=== PATIENT | male | born 1980 ===

== ENCOUNTER 2017-12-04 23:07 | Emergency (ER) | payer BC ==
[2017-12-05] VITALS: BP 153/93; PULSE 98; RESP 18; TEMP 98.8; O2SAT 99
--- NOTE | 2017-12-05 01:13 | ED PDOC ---
HPI:Nausea, Vomiting, Diarrhea Time Seen by Provider: 12/05/17 00:17 Chief Complaint (Nursing): GI Problem Chief Complaint (Provider): GI Problem History Per: Patient History/Exam Limitations: no limitations Onset/Duration Of Symptoms: Days (x1) Current Symptoms Are (Timing): Still Present Additional Complaint(s): 37 year old male who presents to the emergency department with a complaint of bloody, dark and loose stools associated with nausea and 2 episodes of vomiting ongoing for 1 day. Denied any abdominal pain or decreased appetite. PMD: none provided Past Medical History Reviewed: Historical Data, Nursing Documentation, Vital Signs Vital Signs: Last Vital Signs Temp 98.8 F 12/04/17 23:50 Pulse 98 H 12/04/17 23:50 Resp 18 12/04/17 23:50 BP 153/93 H 12/04/17 23:50 Pulse Ox 99 12/04/17 23:50 - Medical History PMH: No Chronic Diseases - Surgical History Surgical History: No Surg Hx - Family History Family History: States: Unknown Family Hx - Home Medications Home Medications: Ambulatory Orders Medication Instructions Recorded Pantoprazole Sodium [Protonix] 40 mg PO DAILY #30 ect 12/05/17 - Allergies Allergies/Adverse Reactions: Allergies Allergy/AdvReac Type Severity Reaction Status Date / Time No Known Allergies Allergy Verified 12/04/17 23:53 Review of Systems ROS Statement: Except As Marked, All Systems Reviewed And Found Negative Gastrointestinal: Positive for: Nausea, Vomiting (x2), Diarrhea, Melena, Hematochezia. Negative for: Abdominal Pain, Other (decreased appetite) Physical Exam - Reviewed Nursing Documentation Reviewed: Yes Vital Signs Reviewed: Yes - Physical Exam Appears: Positive for: Well, Non-toxic, No Acute Distress Head Exam: Positive for: ATRAUMATIC, NORMAL INSPECTION, NORMOCEPHALIC Skin: Positive for: Normal Color Eye Exam: Positive for: Normal appearance ENT: Positive for: Normal ENT Inspection Neck: Positive for: Normal, Painless ROM. Negative for: Decreased ROM Cardiovascular/Chest: Positive for: Regular Rate, Rhythm, Chest Non Tender Respiratory: Positive for: Normal Breath Sounds. Negative for: Decreased Breath Sounds, Wheezing, Respiratory Distress Gastrointestinal/Abdominal: Positive for: Normal Exam, Soft. Negative for: Tenderness Rectal: Positive for: Blood Streaked Stool. Negative for: Normal Exam Extremity: Positive for: Normal ROM (upper/lower). Negative for: Pedal Edema ( bilateral), Calf Tenderness (bilateral) Neurologic/Psych: Positive for: Alert (x3), Oriented - Laboratory Results Result Diagrams: 12/05/17 01:19 12/05/17 01:19 - ECG O2 Sat by Pulse Oximetry: 99 (RA) Pulse Ox Interpretation: Normal Medical Decision Making Medical Decision Making: Initial Impression: Rectal bleeding Initial Plan: * CMP * CBC * Protonix inj 40mg IVP Time: 0100 --Patient reported feeling better. Time: 0345 --Upon provider reevaluation, patient is medically stable, reported resolution of symptoms with no further bloody bowel movements and requires no further treatment in the ED at this time. Patient will be discharged home. Counseling was provided and all questions were answered regarding diagnosis and need for follow up with PMD. There is agreement to discharge plan. Return if symptoms persist or worsen. Clinical Impression: Rectal bleeding Scribe Attestation: Documented by Danielle Arciniega, acting as a scribe for Kiran Vega MD. Provider Scribe Attestation: All medical record entries made by the Scribe were at my direction and personally dictated by me. I have reviewed the chart and agree that the record accurately reflects my personal performance of the history, physical exam, medical decision making, and the department course for this patient. I have also personally directed, reviewed, and agree with the discharge instructions and disposition. Disposition - Clinical Impression Clinical Impression: Rectal bleeding - Patient ED Disposition Is Patient to be Admitted: No Counseled Patient/Family Regarding: Studies Performed, Diagnosis, Need For Followup - Disposition Referrals: JenniferWishery Serena Clayton [Outside] Chai Pitts MD [Staff Provider] - Disposition: Routine/Home Disposition Time: 03:45 Condition: IMPROVED Prescriptions: Pantoprazole Sodium [Protonix] 40 mg PO DAILY #30 ect Instructions: Rectal Bleeding (ED) Forms: [employer] (Uzbek)
[2017-12-05 01:31] LABS: BASO # 0.1 K/uL (0.0-0.2); BASO % 0.4 % (0.0-2.0); EOS # 0.1 K/uL (0.0-0.7); EOS % 0.3 % (0.0-4.0); HEMOGLOBIN 11.1 g/dL (12.0-18.0); LYMPH # 4.1 K/uL (1.0-4.3); LYMPH % 20.3 % (20.0-40.0); MEAN CELL VOLUME 93.7 fl (80.0-94.0); MEAN CORPUSCULAR HEMOGLOBIN 30.9 pg (27.0-31.0); MEAN PLATELET VOLUME 8.4 fl (7.2-11.7); MONO # 1.5 K/uL (0.0-0.8); MONO % 7.4 % (0.0-10.0); NEUT # 14.5 K/uL (1.8-7.0); NEUT % 71.6 % (50.0-75.0); RBC 3.59 Mil/uL (4.40-5.90); RED CELL DISTRIBUTION WIDTH 12.8 % (11.5-14.5); WHITE BLOOD COUNT 20.3 K/uL (4.8-10.8)
[2017-12-05 01:42] LABS: ALB/GLOB RATIO 1.4 (1.0-2.1); ALBUMIN 3.8 g/dL (3.5-5.0); ALT/SGPT 40 U/L (21-72); AST/SGOT 21 U/L (17-59); BLOOD UREA NITROGEN 19 mg/dl (9-20); CALCIUM 8.8 mg/dL (8.4-10.2); GFR AFRICAN-AMERICAN > 60; GFR NON-AFRICAN AMERICAN > 60
== END 2017-12-05 04:06 | disposition home or self-care (01) ==
LOC: H.ER 23:07
DX: K62.5 Hemorrhage of anus and rectum (principal)
CPT/HCPCS: 80053; 85025; 96374; 99282; C9113; G0328

== ENCOUNTER 2017-12-08 16:41 | Inpatient (IN) | payer BC ==
[2017-12-08] MEDS ORDERED: Sodium Chloride 0.9% 1,000 ML IV STA (17:11)
[2017-12-08 18:04] LABS: VENOUS BLOOD GAS BASE EXCESS 6.9 mmol/L (0.0-2.0); VENOUS BLOOD GAS PCO2 52 mmHg (40-60); VENOUS BLOOD GAS PO2 21 mm/Hg (30-55); VENOUS BLOOD PH 7.41 (7.32-7.43)
--- NOTE | 2017-12-08 18:14 | ED PDOC ---
HPI: General Adult Time Seen by Provider: 12/08/17 17:10 Chief Complaint (Nursing): GI Problem Chief Complaint (Provider): GI Problem History Per: Patient History/Exam Limitations: no limitations Onset/Duration Of Symptoms: Days (x 5) Have you had recent travel within the past 21 days to any of the following countries: [place], [place], [place] or [place]?: No Current Symptoms Are (Timing): Still Present Additional Complaint(s): 37 year old male presents to the ED complaining of a persistent GI bleed, onset 5 days ago. He ws previously seen in ER for hematemesis. His hemoglobin levels were determined to be stable, he was discharged and told to follow up with GI doctor, Dr. Simpson. Today, he saw GI doctor who performed repeat blood work on the patient. Blood work showed precipitous drop in hemoglobin and he was sent to ER for evaluation. He states that intestinal symptoms have improved. Does note feeling fatigue. Admits to significant Motrin use over the last month. Denies vomit or blood per rectum. PMD: Dr. Tatiana TYSON Patient saw [facility] this morning Past Medical History Reviewed: Historical Data, Nursing Documentation, Vital Signs Vital Signs: Last Vital Signs Temp 97.8 F 12/10/17 09:30 Pulse 66 12/10/17 09:30 Resp 19 12/10/17 09:30 BP 130/73 12/10/17 09:30 Pulse Ox 100 12/10/17 09:30 - Medical History PMH: No Chronic Diseases - Surgical History Surgical History: No Surg Hx - Family History Family History: States: Unknown Family Hx - Social History Current smoker - smoking cessation education provided: No Alcohol: Social Drugs: Cannabis - Home Medications Home Medications: Ambulatory Orders Medication Instructions Recorded Pantoprazole Sodium [Protonix] 40 mg PO DAILY #30 ect 12/05/17 Ferrous Sulfate [Feosol] 325 mg PO BID #60 tab 12/10/17 Pantoprazole [Protonix EC Tab] 40 mg PO DAILY #30 ect 12/10/17 - Allergies Allergies/Adverse Reactions: Allergies Allergy/AdvReac Type Severity Reaction Status Date / Time No Known Allergies Allergy Verified 12/08/17 17:03 Review of Systems ROS Statement: Except As Marked, All Systems Reviewed And Found Negative Gastrointestinal: Positive for: Abdominal Pain, Melena, Hematemesis Neurological: Positive for: Dizziness Physical Exam - Reviewed Nursing Documentation Reviewed: Yes - Physical Exam Appears: Positive for: Non-toxic, No Acute Distress Head Exam: Positive for: ATRAUMATIC Skin: Positive for: Warm, Dry, Pallor Eye Exam: Positive for: EOMI, Normal appearance, PERRL Neck: Positive for: Normal, Painless ROM, Supple Cardiovascular/Chest: Positive for: Regular Rate, Rhythm. Negative for: Murmur Respiratory: Positive for: Normal Breath Sounds. Negative for: Respiratory Distress Gastrointestinal/Abdominal: Positive for: Normal Exam, Soft Back: Positive for: Normal Inspection. Negative for: L CVA Tenderness, R CVA Tenderness, Vertebral Tenderness Extremity: Positive for: Normal ROM. Negative for: Deformity Neurologic/Psych: Positive for: Alert, Oriented. Negative for: Motor/Sensory Deficits - Laboratory Results Result Diagrams: 12/10/17 06:10 12/10/17 06:10 - ECG O2 Sat by Pulse Oximetry: 98 (RA) Pulse Ox Interpretation: Normal Medical Decision Making Medical Decision Making: Time: 17:11 Initial Plan: --Blood screen and type --VBG shock --EKG --Alcohol serum --CMP --Lipase --Troponin I --PTT --Prothrombin time --Chest x-ray --Normal Saline IV 1,000 mls/hr --Protonix Inj 40 mg IVPB Q5H --Urinalysis Patient will recieve a workup for GI bleed and a protonix strip was initiated. Will be admitted for GI stabilization. Discussed PRBC transfusion, patient would like to avoid if he can, denies current SOB, chest pain or presyncope. Scribe Attestation: Documented by Rashida Pastor, acting as a scribe for Naman Jacobson III Provider Scribe Attestation: All medical record entries made by the Scribe were at my direction and personally dictated by me. I have reviewed the chart and agree that the record accurately reflects my personal performance of the history, physical exam, medical decision making, and the department course for this patient. I have also personally directed, reviewed, and agree with the discharge instructions and disposition Disposition - Clinical Impression Clinical Impression: Gastrointestinal hemorrhage, Anemia - Patient ED Disposition Is Patient to be Admitted: Yes Comment: Dr Mosquera GI fellow aware - Disposition Disposition Time: 19:20 Condition: STABLE - Pt Status Changed To: Hospital Disposition Of: Inpatient - Admit Certification Admit to Inpatient:: After my assessment, the patient will require hospitalization for at least two midnights. This is because of the severity of symptoms shown, intensity of services needed, and/or the medical risk in this patient being treated as an outpatient. - POA Present On Arrival: None
[2017-12-08] MEDS: Pantoprazole 40 MG in Sodium Chloride 0.9% 100 ML IVPB SCH ×2 (18:22→23:01)
[2017-12-08 18:24] LABS: INR 1.1 (0.9-1.2); PARTIAL THROMBOPLASTIN TIME 26.7 Seconds (25.6-37.1); PROTHROMBIN TIME 12.4 Seconds (9.8-13.1)
[2017-12-08 18:59] LABS: ALB/GLOB RATIO 1.5 (1.0-2.1); ALBUMIN 4.1 g/dL (3.5-5.0); ALT/SGPT 79 U/L (21-72); AST/SGOT 53 U/L (17-59); BLOOD UREA NITROGEN 11 mg/dl (9-20); CALCIUM 9.1 mg/dL (8.4-10.2); GFR AFRICAN-AMERICAN > 60; GFR NON-AFRICAN AMERICAN > 60; LIPASE 82 U/L (23-300)
[2017-12-08 20:02] LABS: BASO # 0.1 K/uL (0.0-0.2); BASO % 0.6 % (0.0-2.0); EOS # 0.1 K/uL (0.0-0.7); EOS % 0.6 % (0.0-4.0); HEMOGLOBIN 6.8 g/dL (12.0-18.0); LYMPH # 3.3 K/uL (1.0-4.3); LYMPH % 27.8 % (20.0-40.0); MEAN CELL VOLUME 96.5 fl (80.0-94.0); MEAN CORPUSCULAR HEMOGLOBIN 31.8 pg (27.0-31.0); MEAN CORPUSCULAR HGB CONC 32.9 g/dL (33.0-37.0); MEAN PLATELET VOLUME 7.9 fl (7.2-11.7); MONO # 0.9 K/uL (0.0-0.8); MONO % 7.8 % (0.0-10.0); NEUT # 7.6 K/uL (1.8-7.0); NEUT % 63.2 % (50.0-75.0); NRBC % 0.2 % (0.0-0.0); RBC 2.13 Mil/uL (4.40-5.90); RED CELL DISTRIBUTION WIDTH 13.5 % (11.5-14.5)
[2017-12-08 20:11] LABS: URINE BACTERIA OCC (<OCC); URINE BILIRUBIN NEGATIVE (NEGATIVE); URINE BLOOD NEGATIVE (NEGATIVE); URINE CLARITY SLIGHTY-CLOUDY (Clear); URINE COLOR YELLOW (YELLOW); URINE GLUCOSE (UA) NEG (Normal); URINE LEUKOCYTE ESTERASE NEG Leu/uL (Negative); URINE NITRATE NEGATIVE (NEGATIVE); URINE PROTEIN NEGATIVE (NEGATIVE); URINE UROBILINOGEN 0.2-1.0 mg/dL (0.2-1.0)
[2017-12-08 20:18] LABS: SQUAMOUS EPITHIAL 1 /hpf (0-5)
[2017-12-08] MEDS ORDERED: Iohexol 240 (50 ml) PO ONE (20:50)
--- NOTE | 2017-12-08 21:32 | CP.PCM.HP ---
History of Present Illness - History of Present Illness History of Present Illness: PMD: [facility] Hx taken from patient Full code 37 y/o M with no significant PMHx presented to ED with c/o weakness and referred from GI clinic for low Hgb. Patient was evaluated at ED 3 days ago with suspected melena and hematemesis, complains of weakness and palpitations, Hgb =11s at the time and FOBT was positive. 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 TOday patient went to [facility] and repeat labs were ordered, he then was able to be evaluated by Dr Simpson at GI clinic and Hgb was found to be 7s after what he was transferred to ED. Patient states that 4 days ago he started feeling weak and had multiple episode of light brown vomiting and 1 episode of dark stools after. He admitted drinking the night before, but does not recall how many drink he had. 3 days ago he then developed another episode of very dark stools and persistent vomiting when he decided to come to ED. After he was discharge home, the following day(2 days ago) he had a big vomiting with red blood and another episode of black stools. Since then he report no more vomiting, nausea or black stools. Report 1 BM today normal. Weakness "improved" as per patient. Denies recent episodes in the past, denies recent trauma. Admits taking NSAIDs for 1 week before symptoms started due to cold like symptoms(might have taken multiple tablet of Ibuprofen as per patient as well as some Nyquil). Admits marihuana and tobacco often. Denies palpitations, CP, SOB, dysuria, dizziness, headache, abd pain or heartburn. ED course: VS: HR 96, BP 174/83, PO 98, Temp 99 CBC, CMP, VBG, CXR, EKG, UA, Coags, Troponins, Lipase: Hgb 6.8, WBC 12, Coags , Liver enzymes and BUN/Creat unremarkable. UA + for Bacteria IV NS 1 L Protonix 80 mg IVP stat Protonix drip at 8 mg/hr Admitted to Telemetry Present on Admission - Present on Admission Any Indicators Present on Admission: No Review of Systems - Review of Systems All systems: reviewed and no additional remarkable complaints except - Constitutional Constitutional: Weakness (Resolved) - Gastrointestinal Gastrointestinal: Hematemesis, Melena, Nausea, Vomiting (resolved) Past Patient History - Past Medical History & Family History Past Medical History?: No - Past Social History Smoking Status: Light Smoker < 10 Cigarettes Daily Alcohol: Social Drugs: Cannabis - CARDIAC Hx Cardiac Disorders: No - PULMONARY Hx Respiratory Disorders: No - NEUROLOGICAL Hx Neurological Disorder: No - HEENT Hx HEENT Problems: No - RENAL Hx Chronic Kidney Disease: No - ENDOCRINE/METABOLIC Hx Endocrine Disorders: No - HEMATOLOGICAL/ONCOLOGICAL Hx Blood Disorders: No - MUSCULOSKELETAL/RHEUMATOLOGICAL Hx Musculoskeletal Disorders: No - GASTROINTESTINAL Hx Gastrointestinal Disorders: No - GENITOURINARY/GYNECOLOGICAL Hx Genitourinary Disorders: No - PSYCHIATRIC Hx Substance Use: Yes - SURGICAL HISTORY Hx Surgeries: No - ANESTHESIA Hx Anesthesia: No Meds Allergies/Adverse Reactions: Allergies Allergy/AdvReac Type Severity Reaction Status Date / Time No Known Allergies Allergy Verified 12/08/17 17:03 Physical Exam - Constitutional Appears: Non-toxic, No Acute Distress - Head Exam Head Exam: ATRAUMATIC, NORMAL INSPECTION - Eye Exam Eye Exam: EOMI, PERRL - ENT Exam ENT Exam: Mucous Membranes Moist - Respiratory Exam Respiratory Exam: Clear to Auscultation Bilateral, NORMAL BREATHING PATTERN - Cardiovascular Exam Cardiovascular Exam: REGULAR RHYTHM, +S1, +S2 - GI/Abdominal Exam GI & Abdominal Exam: Normal Bowel Sounds, Soft. absent: Guarding, Rebound - Rectal Exam Rectal Exam: Deferred Additional comments: Patient had rectal exam done by GI fellow earlier today. - Extremities Exam Extremities exam: Positive for: normal capillary refill. Negative for: pedal edema, tenderness - Back Exam Back exam: absent: CVA tenderness (L), CVA tenderness (R) - Neurological Exam Neurological exam: Alert, CN II-XII Intact, Normal Gait, Oriented x3 - Psychiatric Exam Psychiatric exam: Normal Affect, Normal Mood - Skin Skin Exam: Pallor, Warm Results - Vital Signs Recent Vital Signs: Last Vital Signs Temp 99.2 F 12/08/17 21:21 Pulse 89 12/08/17 21:21 Resp 16 12/08/17 21:21 BP 137/68 12/08/17 21:21 Pulse Ox 100 12/08/17 21:21 - Labs Result Diagrams: 12/08/17 19:30 12/08/17 17:47 Labs: Laboratory Results - last 24 hr 12/08/17 12/08/17 12/08/17 17:47 17:47 17:47 WBC RBC Hgb Hct MCV MCH MCHC RDW Plt Count MPV Neut % (Auto) Lymph % (Auto) [place] % (Auto) Eos % (Auto) Baso % (Auto) Neut # Lymph # [place] # Eos # Baso # PT 12.4 INR 1.1 APTT 26.7 pO2 VBG pH VBG pCO2 VBG HCO3 VBG Total CO2 VBG O2 Sat (Calc) VBG Base Excess VBG Potassium Glucose Lactate FiO2 Sodium 139 Potassium 3.5 L Chloride 98 Carbon Dioxide 30 Anion Gap 15 BUN 11 Creatinine 0.9 Est GFR ( Amer) > 60 Est GFR (Non-Af Amer) > 60 Random Glucose 100 Calcium 9.1 Total Bilirubin 0.4 AST 53 ALT 79 H Alkaline Phosphatase 41 Troponin I 0.0220 Total Protein 6.9 Albumin 4.1 Globulin 2.7 Albumin/Globulin Ratio 1.5 Lipase 82 Venous Blood Potassium Urine Color Urine Clarity Urine pH Ur Specific [place] Urine Protein Urine Glucose (UA) Urine Ketones Urine Blood Urine Nitrate Urine Bilirubin Urine Urobilinogen Ur Leukocyte Esterase Urine RBC (Auto) Urine Microscopic WBC Ur Squamous Epith Cells Urine Bacteria Alcohol, Quantitative < 10 Blood Type A POSITIVE Antibody Screen Negative BBK History Checked No verified bt 12/08/17 12/08/17 12/08/17 18:02 19:30 19:30 WBC 12.0 H RBC 2.13 L Hgb 6.8 L Hct 20.6 L MCV 96.5 H MCH 31.8 H MCHC 32.9 L RDW 13.5 Plt Count 339 MPV 7.9 Neut % (Auto) 63.2 Lymph % (Auto) 27.8 [place] % (Auto) 7.8 Eos % (Auto) 0.6 Baso % (Auto) 0.6 Neut # 7.6 H Lymph # 3.3 [place] # 0.9 H Eos # 0.1 Baso # 0.1 PT INR APTT pO2 21 L VBG pH 7.41 VBG pCO2 52 VBG HCO3 28.6 VBG Total CO2 34.6 H VBG O2 Sat (Calc) 38.3 L VBG Base Excess 6.9 H VBG Potassium 3.3 L Glucose 102 Lactate 1.1 FiO2 21.0 Sodium 136.0 Potassium Chloride 102.0 Carbon Dioxide Anion Gap BUN Creatinine Est GFR ( Amer) Est GFR (Non-Af Amer) Random Glucose Calcium Total Bilirubin AST ALT Alkaline Phosphatase Troponin I Total Protein Albumin Globulin Albumin/Globulin Ratio Lipase Venous Blood Potassium 3.3 L Urine Color Yellow Urine Clarity Slighty-cloudy Urine pH 6.0 Ur Specific [place] 1.020 Urine Protein Negative Urine Glucose (UA) Neg Urine Ketones Trace Urine Blood Negative Urine Nitrate Negative Urine Bilirubin Negative Urine Urobilinogen 0.2-1.0 Ur Leukocyte Esterase Neg Urine RBC (Auto) 2 Urine Microscopic WBC 1 Ur Squamous Epith Cells 1 Urine Bacteria Occ H Alcohol, Quantitative Blood Type Antibody Screen BBK History Checked Assessment & Plan - Assessment and Plan (Free Text) Assessment: 37 y/o M with no PMHx admitted for acute anemia and suspected GI bleeding Acute anemia -Likely due to acute blood loss -Hgb 6.8 -Asymptomatic -No actively bleeding at the time of admission -VS stable, coags and platelets WNL -2 units of PRBC ordered -F/U CBC AM -Admit to telemetry GI bleeding -Suspected. Likely Upper -Acute -R/O Chana Gupta tears vs Gastritis VS Ulcer -FOBT + 4 days ago -GI consulted(Dr Simpson) -Protonix drip -Oxygen NC PRN -NPO after midnight -For poss EGD tomorrow AM -CT abd and pelvis with PO and IV contrast as per GI recs -Zofran PRN for nausea/vomiting -Case discussed with GI fellow(Dr Mosquera) Substance abuse -Admits marijuana and ETOH -ETOH level at ED <10 -HIV ordered -UTox ordered Abnormal UA -bacteria. Rest unremarkable -Asymptomatic -Ucx ordered Prophylactic measures -SCDs
[2017-12-08] MEDS ORDERED: Iohexol 240 (50 ml) ONE (21:33)
[2017-12-08] MEDS ORDERED: Iohexol 300 100 ML IJ ONE (22:54)
[2017-12-08] MEDS ORDERED: Sodium Chloride 0.9% 50 ML IV ONE (22:54)
[2017-12-09] MEDS: Pantoprazole 40 MG in Sodium Chloride 0.9% 100 ML IVPB SCH ×4 (05:12→19:50)
[2017-12-09] MEDS ORDERED: Pneumococcal 23-Valent Vaccine IM ONE (06:00)
[2017-12-09] MEDS ORDERED: Influenza Vaccine 18yr & older 0.5 ML/45 MCG SYR IM ONE (06:00)
--- NOTE | 2017-12-09 06:51 | CP.PCM.CON ---
<Marah Mosquera - Last Filed: 12/09/17 07:26> History of Present Illness - History of Present Illness History of Present Illness: Initial GI Consult Note Jc Griffin is a 37M w/ no sig medical hx who presented to Dr. Simpson office with complaints of melena and hematemesis. Pt states that 4 days ago he started to have profuse nausea vomiting and diarrhea which eventually progressed to melena and blood tinged emesis. He states that the day prior to these events he went to a [place] and consumes significant amount of alcohol beverages and used cocaine. He notes that his symptom brought him to the ER for further evaluation. In ER, his hgn was 11 and pt was noted to be stable so he was discharged home on PPI. He had a repeat hgb conducted as an oupt on 12/08/17 which was noted to be 7.2. His rectal exam in the Dr. Simpson's office revealed black stool but formed. He denies any lightheaded or dizziness, though he was tachycardic and pale. Upon arrival to the ER, he was found to have a hgb of 6.8. He recieved 2 units of PRBC and started on PPI. He also reports taking a significant amount of NSAIDs including ibuprofen and naproxen the week priot due to flu like symptoms. Denies any abd pain, chest pain, or SOB PMHx: none PSHx: none Social hx: admits to drinking on the weekends 2-4 beers daily, Denies previous use of cocaine prior to this event, denies any smoking Family hx: denies a hx of colon cancer Endo hx: none ROS: 12 point ROS conducted neg other than above Past Patient History - Past Medical History & Family History Past Medical History?: No - Past Social History Smoking Status: Light Smoker < 10 Cigarettes Daily Alcohol: Social Drugs: Cannabis - CARDIAC Hx Cardiac Disorders: No - PULMONARY Hx Respiratory Disorders: No - NEUROLOGICAL Hx Neurological Disorder: No - HEENT Hx HEENT Problems: No - RENAL Hx Chronic Kidney Disease: No - ENDOCRINE/METABOLIC Hx Endocrine Disorders: No - HEMATOLOGICAL/ONCOLOGICAL Hx Blood Disorders: No - INTEGUMENTARY Hx Dermatological Problems: No - MUSCULOSKELETAL/RHEUMATOLOGICAL Hx Musculoskeletal Disorders: No - GASTROINTESTINAL Hx Gastrointestinal Disorders: No - GENITOURINARY/GYNECOLOGICAL Hx Genitourinary Disorders: No - PSYCHIATRIC Hx Substance Use: Yes - SURGICAL HISTORY Hx Surgeries: No - ANESTHESIA Hx Anesthesia: No Meds Allergies/Adverse Reactions: Allergies Allergy/AdvReac Type Severity Reaction Status Date / Time No Known Allergies Allergy Verified 12/08/17 17:03 - Medications Medications: Current Medications Pantoprazole Sodium 40 mg/ (Sodium Chloride) 100 mls @ 20 mls/hr IVPB Q5H JOLLY PRN Reason: 8 MG/HR Last Admin: 12/09/17 05:12 Dose: 20 mls/hr Sodium Chloride (Sodium Chloride 0.9%) 1,000 mls @ 125 mls/hr IV .Q8H JOLLY Stop: 12/10/17 06:39 Ondansetron HCl (Zofran Inj) 4 mg IVP Q6 PRN PRN Reason: Nausea/Vomiting Physical Exam - Constitutional Appears: Well, No Acute Distress - Head Exam Head Exam: ATRAUMATIC, NORMOCEPHALIC - Eye Exam Eye Exam: EOMI, Normal appearance - ENT Exam ENT Exam: Mucous Membranes Moist - Respiratory Exam Respiratory Exam: Clear to Auscultation Bilateral, NORMAL BREATHING PATTERN. absent: Rales, Rhonchi, Wheezes, Respiratory Distress - Cardiovascular Exam Cardiovascular Exam: REGULAR RHYTHM, +S1, +S2 - GI/Abdominal Exam GI & Abdominal Exam: Normal Bowel Sounds, Soft. absent: Distended, Guarding, Hernia, Rigid, Tenderness - Rectal Exam Rectal Exam: Black Stool. absent: Bloody Stool, Hemorrhoids, Fecal Impaction - Extremities Exam Extremities exam: Negative for: joint swelling, pedal edema - Neurological Exam Neurological exam: Alert, Oriented x3 - Psychiatric Exam Psychiatric exam: Normal Affect, Normal Mood - Skin Skin Exam: Dry, Intact, Normal Color, Warm Results - Vital Signs Recent Vital Signs: Last Vital Signs Temp 98.3 F 12/09/17 05:19 Pulse 78 12/09/17 05:19 Resp 18 12/09/17 05:19 BP 124/74 12/09/17 05:19 Pulse Ox 98 12/09/17 05:19 - Labs Result Diagrams: 12/08/17 19:30 12/08/17 17:47 Labs: Laboratory Results - last 24 hr 12/08/17 12/08/17 12/08/17 17:47 17:47 17:47 WBC RBC Hgb Hct MCV MCH MCHC RDW Plt Count MPV Neut % (Auto) Lymph % (Auto) Starke % (Auto) Eos % (Auto) Baso % (Auto) Neut # Lymph # Starke # Eos # Baso # PT 12.4 INR 1.1 APTT 26.7 pO2 VBG pH VBG pCO2 VBG HCO3 VBG Total CO2 VBG O2 Sat (Calc) VBG Base Excess VBG Potassium Glucose Lactate FiO2 Sodium 139 Potassium 3.5 L Chloride 98 Carbon Dioxide 30 Anion Gap 15 BUN 11 Creatinine 0.9 Est GFR ( Amer) > 60 Est GFR (Non-Af Amer) > 60 Random Glucose 100 Calcium 9.1 Total Bilirubin 0.4 AST 53 ALT 79 H Alkaline Phosphatase 41 Troponin I 0.0220 Total Protein 6.9 Albumin 4.1 Globulin 2.7 Albumin/Globulin Ratio 1.5 Lipase 82 Venous Blood Potassium Urine Color Urine Clarity Urine pH Ur Specific Munday Urine Protein Urine Glucose (UA) Urine Ketones Urine Blood Urine Nitrate Urine Bilirubin Urine Urobilinogen Ur Leukocyte Esterase Urine RBC (Auto) Urine Microscopic WBC Ur Squamous Epith Cells Urine Bacteria Alcohol, Quantitative < 10 Blood Type A POSITIVE Blood Type Confirm Antibody Screen Negative Crossmatch See Detail BBK History Checked No verified bt 12/08/17 12/08/17 12/08/17 18:02 18:44 19:30 WBC RBC Hgb Hct MCV MCH MCHC RDW Plt Count MPV Neut % (Auto) Lymph % (Auto) Starke % (Auto) Eos % (Auto) Baso % (Auto) Neut # Lymph # Starke # Eos # Baso # PT INR APTT pO2 21 L VBG pH 7.41 VBG pCO2 52 VBG HCO3 28.6 VBG Total CO2 34.6 H VBG O2 Sat (Calc) 38.3 L VBG Base Excess 6.9 H VBG Potassium 3.3 L Glucose 102 Lactate 1.1 FiO2 21.0 Sodium 136.0 Potassium Chloride 102.0 Carbon Dioxide Anion Gap BUN Creatinine Est GFR ( Amer) Est GFR (Non-Af Amer) Random Glucose Calcium Total Bilirubin AST ALT Alkaline Phosphatase Troponin I Total Protein Albumin Globulin Albumin/Globulin Ratio Lipase Venous Blood Potassium 3.3 L Urine Color Yellow Urine Clarity Slighty-cloudy Urine pH 6.0 Ur Specific Munday 1.020 Urine Protein Negative Urine Glucose (UA) Neg Urine Ketones Trace Urine Blood Negative Urine Nitrate Negative Urine Bilirubin Negative Urine Urobilinogen 0.2-1.0 Ur Leukocyte Esterase Neg Urine RBC (Auto) 2 Urine Microscopic WBC 1 Ur Squamous Epith Cells 1 Urine Bacteria Occ H Alcohol, Quantitative Blood Type Blood Type Confirm A POSITIVE Antibody Screen Crossmatch BBK History Checked 12/08/17 19:30 WBC 12.0 H RBC 2.13 L Hgb 6.8 L Hct 20.6 L MCV 96.5 H MCH 31.8 H MCHC 32.9 L RDW 13.5 Plt Count 339 MPV 7.9 Neut % (Auto) 63.2 Lymph % (Auto) 27.8 Starke % (Auto) 7.8 Eos % (Auto) 0.6 Baso % (Auto) 0.6 Neut # 7.6 H Lymph # 3.3 Starke # 0.9 H Eos # 0.1 Baso # 0.1 PT INR APTT pO2 VBG pH VBG pCO2 VBG HCO3 VBG Total CO2 VBG O2 Sat (Calc) VBG Base Excess VBG Potassium Glucose Lactate FiO2 Sodium Potassium Chloride Carbon Dioxide Anion Gap BUN Creatinine Est GFR ( Amer) Est GFR (Non-Af Amer) Random Glucose Calcium Total Bilirubin AST ALT Alkaline Phosphatase Troponin I Total Protein Albumin Globulin Albumin/Globulin Ratio Lipase Venous Blood Potassium Urine Color Urine Clarity Urine pH Ur Specific Munday Urine Protein Urine Glucose (UA) Urine Ketones Urine Blood Urine Nitrate Urine Bilirubin Urine Urobilinogen Ur Leukocyte Esterase Urine RBC (Auto) Urine Microscopic WBC Ur Squamous Epith Cells Urine Bacteria Alcohol, Quantitative Blood Type Blood Type Confirm Antibody Screen Crossmatch BBK History Checked Assessment & Plan - Assessment and Plan (Free Text) Assessment: Jc Cruz is a 37M w/ no sig hx who presents with anemia and melena Melena Normocytic anemia Plan: -NPO -EGD in the AM -keep hgb >7 -continue PPI drip for now, s/p 80mg IV bolus -will get a colonoscopy on -keep on clears after EGD -start golytly at noon -NPO after midnight -consents in chart -maintain 2 large IV bore lines will D/w Dr. Alegria <Wero Alegria - Last Filed: 12/09/17 07:31> Meds - Medications Medications: Current Medications Pantoprazole Sodium 40 mg/ (Sodium Chloride) 100 mls @ 20 mls/hr IVPB Q5H JOLLY PRN Reason: 8 MG/HR Last Admin: 12/09/17 05:12 Dose: 20 mls/hr Sodium Chloride (Sodium Chloride 0.9%) 1,000 mls @ 125 mls/hr IV .Q8H JOLLY Stop: 12/10/17 06:39 Ondansetron HCl (Zofran Inj) 4 mg IVP Q6 PRN PRN Reason: Nausea/Vomiting Results - Vital Signs Recent Vital Signs: Last Vital Signs Temp 98.3 F 12/09/17 06:57 Pulse 85 12/09/17 06:57 Resp 18 12/09/17 06:57 BP 127/73 12/09/17 06:57 Pulse Ox 98 12/09/17 05:19 - Labs Result Diagrams: 12/08/17 19:30 12/08/17 17:47 Labs: Laboratory Results - last 24 hr 12/08/17 12/08/17 12/08/17 17:47 17:47 17:47 WBC RBC Hgb Hct MCV MCH MCHC RDW Plt Count MPV Neut % (Auto) Lymph % (Auto) Starke % (Auto) Eos % (Auto) Baso % (Auto) Neut # Lymph # Starke # Eos # Baso # PT 12.4 INR 1.1 APTT 26.7 pO2 VBG pH VBG pCO2 VBG HCO3 VBG Total CO2 VBG O2 Sat (Calc) VBG Base Excess VBG Potassium Glucose Lactate FiO2 Sodium 139 Potassium 3.5 L Chloride 98 Carbon Dioxide 30 Anion Gap 15 BUN 11 Creatinine 0.9 Est GFR ( Amer) > 60 Est GFR (Non-Af Amer) > 60 Random Glucose 100 Calcium 9.1 Total Bilirubin 0.4 AST 53 ALT 79 H Alkaline Phosphatase 41 Troponin I 0.0220 Total Protein 6.9 Albumin 4.1 Globulin 2.7 Albumin/Globulin Ratio 1.5 Lipase 82 Venous Blood Potassium Urine Color Urine Clarity Urine pH Ur Specific [place] Urine Protein Urine Glucose (UA) Urine Ketones Urine Blood Urine Nitrate Urine Bilirubin Urine Urobilinogen Ur Leukocyte Esterase Urine RBC (Auto) Urine Microscopic WBC Ur Squamous Epith Cells Urine Bacteria Alcohol, Quantitative < 10 Blood Type A POSITIVE Blood Type Confirm Antibody Screen Negative Crossmatch See Detail BBK History Checked No verified bt 12/08/17 12/08/17 12/08/17 18:02 18:44 19:30 WBC RBC Hgb Hct MCV MCH MCHC RDW Plt Count MPV Neut % (Auto) Lymph % (Auto) Starke % (Auto) Eos % (Auto) Baso % (Auto) Neut # Lymph # Starke # Eos # Baso # PT INR APTT pO2 21 L VBG pH 7.41 VBG pCO2 52 VBG HCO3 28.6 VBG Total CO2 34.6 H VBG O2 Sat (Calc) 38.3 L VBG Base Excess 6.9 H VBG Potassium 3.3 L Glucose 102 Lactate 1.1 FiO2 21.0 Sodium 136.0 Potassium Chloride 102.0 Carbon Dioxide Anion Gap BUN Creatinine Est GFR ( Amer) Est GFR (Non-Af Amer) Random Glucose Calcium Total Bilirubin AST ALT Alkaline Phosphatase Troponin I Total Protein Albumin Globulin Albumin/Globulin Ratio Lipase Venous Blood Potassium 3.3 L Urine Color Yellow Urine Clarity Slighty-cloudy Urine pH 6.0 Ur Specific [place]day 1.020 Urine Protein Negative Urine Glucose (UA) Neg Urine Ketones Trace Urine Blood Negative Urine Nitrate Negative Urine Bilirubin Negative Urine Urobilinogen 0.2-1.0 Ur Leukocyte Esterase Neg Urine RBC (Auto) 2 Urine Microscopic WBC 1 Ur Squamous Epith Cells 1 Urine Bacteria Occ H Alcohol, Quantitative Blood Type Blood Type Confirm A POSITIVE Antibody Screen Crossmatch BBK History Checked 12/08/17 19:30 WBC 12.0 H RBC 2.13 L Hgb 6.8 L Hct 20.6 L MCV 96.5 H MCH 31.8 H MCHC 32.9 L RDW 13.5 Plt Count 339 MPV 7.9 Neut % (Auto) 63.2 Lymph % (Auto) 27.8 Starke % (Auto) 7.8 Eos % (Auto) 0.6 Baso % (Auto) 0.6 Neut # 7.6 H Lymph # 3.3 Starke # 0.9 H Eos # 0.1 Baso # 0.1 PT INR APTT pO2 VBG pH VBG pCO2 VBG HCO3 VBG Total CO2 VBG O2 Sat (Calc) VBG Base Excess VBG Potassium Glucose Lactate FiO2 Sodium Potassium Chloride Carbon Dioxide Anion Gap BUN Creatinine Est GFR ( Amer) Est GFR (Non-Af Amer) Random Glucose Calcium Total Bilirubin AST ALT Alkaline Phosphatase Troponin I Total Protein Albumin Globulin Albumin/Globulin Ratio Lipase Venous Blood Potassium Urine Color Urine Clarity Urine pH Ur Specific [place] Urine Protein Urine Glucose (UA) Urine Ketones Urine Blood Urine Nitrate Urine Bilirubin Urine Urobilinogen Ur Leukocyte Esterase Urine RBC (Auto) Urine Microscopic WBC Ur Squamous Epith Cells Urine Bacteria Alcohol, Quantitative Blood Type Blood Type Confirm Antibody Screen Crossmatch BBK History Checked Attending/Attestation - Attestation I have personally seen and examined this patient.: Yes I have fully participated in the care of the patient.: Yes I have reviewed all pertinent clinical information: Yes Notes (Text): 12/09/17 07:29 37 year old male who presents with melena and acute blood loss anemia. 1. Melena 2. Acute blood loss anemia Plan: -CT reviewed, await final read, by unremarkable by my interpretation -abdominal pain is resloved this morning, no vomiting -NPO for urgent EGD this morning -recommend IV PPI -depending on results of EGD, may need colonoscopy tomorrow if no etiology is identified for bleeding/anemia -s/p transfusion overnight
--- NOTE | 2017-12-09 06:57 | CP.PCM.PN ---
Subjective - Date & Time of Evaluation Date of Evaluation: 12/09/17 Time of Evaluation: 07:10 - Subjective Subjective: Patient seen and examined bedside before going to endoscopy. Patient asymptomatic, denies dizziness, chest pain, SOB, n,v,abd pain, hematemesis or melena after admission. Receiving 2 unit pRBC now. Objective - Vital Signs/Intake and Output Vital Signs (last 24 hours): Temp Pulse Resp BP Pulse Ox 98.3 F 78 18 124/74 98 12/09/17 05:19 12/09/17 05:19 12/09/17 05:19 12/09/17 05:19 12/09/17 05:19 - Medications Medications: Current Medications Pantoprazole Sodium 40 mg/ (Sodium Chloride) 100 mls @ 20 mls/hr IVPB Q5H JOLLY PRN Reason: 8 MG/HR Last Admin: 12/09/17 05:12 Dose: 20 mls/hr Sodium Chloride (Sodium Chloride 0.9%) 1,000 mls @ 125 mls/hr IV .Q8H JOLLY Stop: 12/10/17 06:39 Ondansetron HCl (Zofran Inj) 4 mg IVP Q6 PRN PRN Reason: Nausea/Vomiting - Labs Labs: 12/08/17 19:30 12/08/17 17:47 PT 12.4 Seconds (9.8-13.1) 12/08/17 17:47 INR 1.1 (0.9-1.2) 12/08/17 17:47 APTT 26.7 Seconds (25.6-37.1) 12/08/17 17:47 - Constitutional Appears: No Acute Distress - Head Exam Head Exam: ATRAUMATIC, NORMOCEPHALIC - Eye Exam Additional comments: conjunctival pallor - ENT Exam ENT Exam: Mucous Membranes Moist - Neck Exam Neck Exam: Normal Inspection - Respiratory Exam Respiratory Exam: Clear to Ausculation Bilateral. absent: Rales, Rhonchi, Wheezes - Cardiovascular Exam Cardiovascular Exam: REGULAR RHYTHM, +S1, +S2 - GI/Abdominal Exam GI & Abdominal Exam: Soft, Normal Bowel Sounds. absent: Tenderness - Extremities Exam Extremities Exam: Normal Inspection. absent: Pedal Edema - Neurological Exam Neurological Exam: Alert, Awake, Oriented x3 - Skin Skin Exam: Pallor Assessment and Plan - Assessment and Plan (Free Text) Plan: 37 y/o M with no PMHx admitted for acute anemia secondary for suspected GI bleeding 1) Upper GI bleeding -melena and hematemesis -may be secondary to gastritis( ETOH,drugs vs gastric or duodenal ulcer) -CT abd/pelvis Ed: No acute obstructive or inflammatory process in the abdomen or pelvis. -Protonix drip, Zofran PRN -IV fluids NS 125 ml/h -s/p transfusion rPBC 2 units -GI consult appreciated: c/w Protonix 40 mg IV BID, clear diet, colonoscopy tomorrow -12/09/17 EGD: Gastritis, superficial duodenal bulb ulcer 1 cm -f/u gastric biopsy for H pilory -FOBT + -f/u CBC, CMP 2) Acute anemia -secondary to blood loss( duodenal ulcer) -Vs stable -Hgb 6.8. MCV : 96.5 ( macrocytic) -s/p 2 u pRBC -IV Fluids NS 125 ml/h -pending cbc report today after transfusion -f/u cbc, cmp 3) Substance Abuse -Admits marijuana use daily bid for many years and ETOH social -Cocaine use, for first time 4 days ago -ETOH level at ED <10 -f/u UTox -HIV nonreactive 4) Abnormal UA -bacteria occ. Rest unremarkable -Asymptomatic -f/u urine cx 5) DVT Prophylaxis -SCD
[2017-12-09] MEDS ORDERED: EPINEPHrine 1 mg/ml (1:1000) Inj ONE (07:34)
[2017-12-09] MEDS ORDERED: Sodium Chloride 0.9% 500 ML IV ONE ×2 (08:06)
[2017-12-09] MEDS ORDERED: Midazolam 2 MG/2 ML VIAL ONE (08:21)
[2017-12-09] MEDS ORDERED: Propofol 10 mg/ml Inj (20 ML) ONE (08:21)
[2017-12-09] MEDS: Sodium Chloride 0.9% 1,000 ML IV SCH ×3 (09:26→21:51)
--- NOTE | 2017-12-09 10:49 | RAD ---
HISTORY: SOB COMPARISON: No prior. FINDINGS: LUNGS: No active pulmonary disease. PLEURA: No significant pleural effusion identified, no pneumothorax apparent. CARDIOVASCULAR: Normal. OSSEOUS STRUCTURES: No significant abnormalities. VISUALIZED UPPER ABDOMEN: Normal. OTHER FINDINGS: None. IMPRESSION: No active disease.
--- NOTE | 2017-12-09 10:50 | CT ---
PROCEDURE: CT Abdomen and Pelvis with contrast HISTORY: r/o ischemic colitis COMPARISON: None. TECHNIQUE: Contrast dose: 95 mL Omnipaque 300 Radiation dose: Total exam DLP = 88.04 mGy-cm. This CT exam was performed using one or more of the following dose reduction techniques: Automated exposure control, adjustment of the mA and/or kV according to patient size, and/or use of iterative reconstruction technique. FINDINGS: LOWER THORAX: Unremarkable. LIVER: Unremarkable. No gross lesion or ductal dilatation. GALLBLADDER AND BILE DUCTS: Unremarkable. PANCREAS: Unremarkable. No gross lesion or ductal dilatation. SPLEEN: Unremarkable. ADRENALS: Unremarkable. No mass. KIDNEYS AND URETERS: Unremarkable. No hydronephrosis. No solid mass. VASCULATURE: Unremarkable. No aortic aneurysm. BOWEL: Unremarkable. No obstruction. No gross mural thickening. APPENDIX: Normal appendix. PERITONEUM: Unremarkable. No free fluid. No free air. LYMPH NODES: Unremarkable. No enlarged lymph nodes. BLADDER: Unremarkable. REPRODUCTIVE: Normal prostate BONES: No acute fracture. OTHER FINDINGS: None. IMPRESSION: Unremarkable abdominal/ pelvic CT examination. No evidence of ischemic colitis. Preliminary interpretation of this examination was reported by [facility] at 11:40 p.m. on 12/08/2017. There is concurrence of this report with the preliminary interpretation.
[2017-12-09] MEDS ORDERED: Peg-Electrolyte Oral Soln 4L (Golytely) PO ONE (13:00)
[2017-12-09 13:16] LABS: HEMOGLOBIN 8.7 g/dL (12.0-18.0); MEAN CELL VOLUME 91.5 fl (80.0-94.0); MEAN CORPUSCULAR HEMOGLOBIN 30.4 pg (27.0-31.0); MEAN CORPUSCULAR HGB CONC 33.2 g/dL (33.0-37.0); RBC 2.87 Mil/uL (4.40-5.90); RED CELL DISTRIBUTION WIDTH 16.6 % (11.5-14.5); WHITE BLOOD COUNT 11.3 K/uL (4.8-10.8)
[2017-12-09 13:34] LABS: BLOOD UREA NITROGEN 9 mg/dl (9-20); CALCIUM 8.7 mg/dL (8.4-10.2); GFR AFRICAN-AMERICAN > 60; GFR NON-AFRICAN AMERICAN > 60
[2017-12-09 14:45] LABS: BARBITURATES, UR NEGATIVE (NEGATIVE); OPIATES, UR NEGATIVE (NEGATIVE); PHENCYCLIDINE, UR NEGATIVE (NEGATIVE)
[2017-12-09 14:46] LABS: BENZODIAZEPINES, UR POSITIVE (NEGATIVE)
[2017-12-10] MEDS: Pantoprazole 40 MG in Sodium Chloride 0.9% 100 ML IVPB SCH ×2 (00:56→05:50)
[2017-12-10] MEDS ORDERED: Chlorhexidine Gluconate 1 APPL/PKT TP ONE (06:30)
[2017-12-10 06:31] LABS: BASO # 0.1 K/uL (0.0-0.2); BASO % 0.6 % (0.0-2.0); EOS # 0.2 K/uL (0.0-0.7); EOS % 1.5 % (0.0-4.0); HEMOGLOBIN 8.3 g/dL (12.0-18.0); LYMPH # 2.7 K/uL (1.0-4.3); LYMPH % 24.9 % (20.0-40.0); MEAN CELL VOLUME 91.1 fl (80.0-94.0); MEAN CORPUSCULAR HGB CONC 34.1 g/dL (33.0-37.0); MEAN PLATELET VOLUME 7.6 fl (7.2-11.7); MONO # 1.1 K/uL (0.0-0.8); MONO % 10.4 % (0.0-10.0); NEUT # 6.8 K/uL (1.8-7.0); NEUT % 62.6 % (50.0-75.0); NRBC % 0.3 % (0.0-0.0); RBC 2.67 Mil/uL (4.40-5.90); RED CELL DISTRIBUTION WIDTH 16.8 % (11.5-14.5); WHITE BLOOD COUNT 10.9 K/uL (4.8-10.8)
[2017-12-10 07:04] LABS: ALB/GLOB RATIO 1.2 (1.0-2.1); ALBUMIN 3.1 g/dL (3.5-5.0); ALT/SGPT 65 U/L (21-72); AST/SGOT 30 U/L (17-59); BLOOD UREA NITROGEN 7 mg/dl (9-20); CALCIUM 8.5 mg/dL (8.4-10.2); GFR AFRICAN-AMERICAN > 60; GFR NON-AFRICAN AMERICAN > 60
[2017-12-10] MEDS ORDERED: Lactated Ringer's 1,000 ML IV ONE (07:33)
[2017-12-10] MEDS ORDERED: Lidocaine 2% MPF (5 ml) Inj ONE (07:41)
[2017-12-10] MEDS ORDERED: Midazolam 2 MG/2 ML VIAL ONE (07:41)
[2017-12-10] MEDS ORDERED: Propofol 10 mg/ml Inj (20 ML) ONE (07:41)
[2017-12-10] MEDS ORDERED: Pantoprazole 40 mg EC Tab PO SCH (09:00)
[2017-12-10 10:02] VITALS: BP 130/73; PULSE 66; RESP 19; TEMP 97.8
[2017-12-10] MEDS ORDERED: Potassium Chloride 20 mEq ER Tab PO ONE (10:43)
--- NOTE | 2017-12-10 11:16 | CP.PCM.DIS ---
Provider - Provider Date of Admission: 12/08/17 18:59 Attending physician: Mae Dixon MD Time Spent in preparation of Discharge (in minutes): 30 Hospital Course - Lab Results Lab Results: Most Recent Lab Values WBC 10.9 K/uL (4.8-10.8) H 12/10/17 06:10 RBC 2.67 Mil/uL (4.40-5.90) L 12/10/17 06:10 Hgb 8.3 g/dL (12.0-18.0) L 12/10/17 06:10 Hct 24.3 % (35.0-51.0) L 12/10/17 06:10 MCV 91.1 fl (80.0-94.0) 12/10/17 06:10 MCH 31.0 pg (27.0-31.0) 12/10/17 06:10 MCHC 34.1 g/dL (33.0-37.0) 12/10/17 06:10 RDW 16.8 % (11.5-14.5) H 12/10/17 06:10 Plt Count 361 K/uL (130-400) 12/10/17 06:10 MPV 7.6 fl (7.2-11.7) 12/10/17 06:10 Neut % (Auto) 62.6 % (50.0-75.0) 12/10/17 06:10 Lymph % (Auto) 24.9 % (20.0-40.0) 12/10/17 06:10 [place] % (Auto) 10.4 % (0.0-10.0) H 12/10/17 06:10 Eos % (Auto) 1.5 % (0.0-4.0) 12/10/17 06:10 Baso % (Auto) 0.6 % (0.0-2.0) 12/10/17 06:10 Neut # 6.8 K/uL (1.8-7.0) 12/10/17 06:10 Lymph # 2.7 K/uL (1.0-4.3) 12/10/17 06:10 [place] # 1.1 K/uL (0.0-0.8) H 12/10/17 06:10 Eos # 0.2 K/uL (0.0-0.7) 12/10/17 06:10 Baso # 0.1 K/uL (0.0-0.2) 12/10/17 06:10 PT 12.4 Seconds (9.8-13.1) 12/08/17 17:47 INR 1.1 (0.9-1.2) 12/08/17 17:47 APTT 26.7 Seconds (25.6-37.1) 12/08/17 17:47 pO2 21 mm/Hg (30-55) L 12/08/17 18:02 VBG pH 7.41 (7.32-7.43) 12/08/17 18:02 VBG pCO2 52 mmHg (40-60) 12/08/17 18:02 VBG HCO3 28.6 mmol/L 12/08/17 18:02 VBG Total CO2 34.6 mmol/L (22-28) H 12/08/17 18:02 VBG O2 Sat (Calc) 38.3 % (40-65) L 12/08/17 18:02 VBG Base Excess 6.9 mmol/L (0.0-2.0) H 12/08/17 18:02 VBG Potassium 3.3 mmol/L (3.6-5.2) L 12/08/17 18:02 Sodium 136.0 mmol/L (132-148) 12/08/17 18:02 Chloride 102.0 mmol/L (98-107) 12/08/17 18:02 Glucose 102 mg/dL (75-110) 12/08/17 18:02 Lactate 1.1 mmol/L (0.7-2.1) 12/08/17 18:02 FiO2 21.0 % 12/08/17 18:02 Sodium 139 mmol/l (132-148) 12/10/17 06:10 Potassium 3.4 MMOL/L (3.6-5.0) L 12/10/17 06:10 Chloride 104 mmol/L (98-107) 12/10/17 06:10 Carbon Dioxide 27 mmol/L (22-30) 12/10/17 06:10 Anion Gap 11 (10-20) 12/10/17 06:10 BUN 7 mg/dl (9-20) L 12/10/17 06:10 Creatinine 1.0 mg/dl (0.8-1.5) 12/10/17 06:10 Est GFR ( Amer) > 60 12/10/17 06:10 Est GFR (Non-Af Amer) > 60 12/10/17 06:10 Random Glucose 88 mg/dL (75-110) 12/10/17 06:10 Calcium 8.5 mg/dL (8.4-10.2) 12/10/17 06:10 Total Bilirubin 0.7 mg/dl (0.2-1.3) 12/10/17 06:10 AST 30 U/L (17-59) 12/10/17 06:10 ALT 65 U/L (21-72) 12/10/17 06:10 Alkaline Phosphatase 33 U/L (38-126) L 12/10/17 06:10 Troponin I 0.0220 ng/mL (0.00-0.120) 12/08/17 17:47 Total Protein 5.6 G/DL (6.3-8.2) L 12/10/17 06:10 Albumin 3.1 g/dL (3.5-5.0) L D 12/10/17 06:10 Globulin 2.6 gm/dL (2.2-3.9) 12/10/17 06:10 Albumin/Globulin Ratio 1.2 (1.0-2.1) 12/10/17 06:10 Lipase 82 U/L (23-300) 12/08/17 17:47 Venous Blood Potassium 3.3 mmol/L (3.6-5.2) L 12/08/17 18:02 Urine Color Yellow (YELLOW) 12/08/17 19:30 Urine Clarity Slighty-cloudy (Clear) 12/08/17 19:30 Urine pH 6.0 (5.0-8.0) 12/08/17 19:30 Ur Specific [place] 1.020 (1.003-1.030) 12/08/17 19:30 Urine Protein Negative mg/dL (NEGATIVE) 12/08/17 19:30 Urine Glucose (UA) Neg mg/dL (Normal) 12/08/17 19:30 Urine Ketones Trace mg/dL (NEGATIVE) 12/08/17 19:30 Urine Blood Negative (NEGATIVE) 12/08/17 19:30 Urine Nitrate Negative (NEGATIVE) 12/08/17 19:30 Urine Bilirubin Negative (NEGATIVE) 12/08/17 19:30 Urine Urobilinogen 0.2-1.0 mg/dL (0.2-1.0) 12/08/17 19:30 Ur Leukocyte Esterase Neg Zaki/uL (Negative) 12/08/17 19:30 Urine RBC (Auto) 2 /hpf (0-3) 12/08/17 19:30 Urine Microscopic WBC 1 /hpf (0-5) 12/08/17 19:30 Ur Squamous Epith Cells 1 /hpf (0-5) 12/08/17 19:30 Urine Bacteria Occ (<OCC) H 12/08/17 19:30 Urine Opiates Screen Negative (NEGATIVE) 12/09/17 14:11 Urine Methadone Screen Negative (NEGATIVE) 12/09/17 14:11 Ur Barbiturates Screen Negative (NEGATIVE) 12/09/17 14:11 Ur Phencyclidine Scrn Negative (NEGATIVE) 12/09/17 14:11 Ur Amphetamines Screen Negative (NEGATIVE) 12/09/17 14:11 U Benzodiazepines Scrn Positive (NEGATIVE) 12/09/17 14:11 U Oth Cocaine Metabols Negative (NEGATIVE) 12/09/17 14:11 U Cannabinoids Screen Positive (NEGATIVE) H 12/09/17 14:11 Alcohol, Quantitative < 10 mg/dl (0-10) 12/08/17 17:47 Hepatitis C Antibody Negative (NEGATIVE) 12/09/17 12:40 Blood Type A POSITIVE 12/08/17 17:47 Blood Type Confirm A POSITIVE 12/08/17 18:44 Antibody Screen Negative 12/08/17 17:47 Crossmatch See Detail 12/08/17 17:47 BBK History Checked No verified bt 12/08/17 17:47 - Hospital Course Hospital Course: 37 y/o M with no significant PMHx presented to ED with c/o weakness and referred from GI clinic for low Hgb. Patient was evaluated at ED 3 days ago with suspected melena and hematemesis, complains of weakness and palpitations, Hgb =11s at the time and FOBT was positive. VS were stable and he was discharge home with PPIs and Referral to [facility] [facility]. TOday patient went to [facility] and repeat labs were ordered, he then was able to be evaluated by Dr Simpson at GI clinic and Hgb was found to be 7s after what he was transferred to ED. Patient states that 4 days ago he started feeling weak and had multiple episode of light brown vomiting and 1 episode of dark stools after. He admitted drinking the night before, but does not recall how many drink he had. 3 days ago he then developed another episode of very dark stools and persistent vomiting when he decided to come to ED. After he was discharge home, the following day(2 days ago) he had a big vomiting with red blood and another episode of black stools. Since then he report no more vomiting, nausea or black stools. Report 1 BM today normal. Weakness "improved" as per patient. Denies recent episodes in the past, denies recent trauma. Admits taking NSAIDs for 1 week before symptoms started due to cold like symptoms(might have taken multiple tablet of Ibuprofen as per patient as well as some Nyquil). Admits marihuana and tobacco often. Denies palpitations, CP, SOB, dysuria, dizziness, headache, abd pain or heartburn. Patient admitted, received If fluids, 2 units Prbc transfusion, final Hgb 8.3, protonic drip. CT abd/pelvis Ed: No acute obstructive or inflammatory process in the abdomen or pelvis. Patient consulted by GI: EGD done showed Gastritis, superficial duodenal bulb ulcer 1 cm. pending biopsy and luda report. Colonoscopy done today normal. Patient cleared by GI to be discharged with protonix 40mg daily, feosol and f/u 3-4 weeks. during hospitalization pt asymptomatic, no hematemensis or melena reported. Advised to stop ETOH, NSAIDS. f/u in clinic 12/17/17 Dr Susana Lara . Rx CBC in 4 weeks. PE n VS normal before discharge. -- Diagnosis 1) Upper GI bleeding -resolved -s/p transfusion rPBC 2 units 2) Duodenal ulcer -12/09/17 EGD: Gastritis, superficial duodenal bulb ulcer 1 cm 3) Acute anemia -stable -secondary to blood loss( duodenal ulcer) -s/p 2 units Prbc transfusion, final Hgb 8.3, 4) Substance Abuse -Admits marijuana use daily bid for many years and ETOH social -Cocaine use, for first time 4 days ago Discharge Exam - Head Exam Head Exam: ATRAUMATIC, NORMOCEPHALIC - Eye Exam Eye Exam: Normal appearance - Respiratory Exam Respiratory Exam: Clear to PA & Lateral. absent: Rales, Rhonchi - Cardiovascular Exam Cardiovascular Exam: REGULAR RHYTHM, +S1, +S2 - GI/Abdominal Exam GI & Abdominal Exam: Normal Bowel Sounds, Soft. absent: Tenderness - Extremities Exam Extremities exam: normal inspection - Neurological Exam Neurological exam: Alert, Oriented x3 - Psychiatric Exam Psychiatric exam: Normal Affect, Normal Mood - Skin Skin Exam: Intact Discharge Plan - Discharge Medications Prescriptions: Ferrous Sulfate [Feosol] 325 mg PO BID #60 tab Pantoprazole [Protonix EC Tab] 40 mg PO DAILY #30 ect - Follow Up Plan Condition: STABLE Disposition: HOME/ ROUTINE Instructions: Gastrointestinal Bleeding (DC), Colonoscopy (DC), Anemia (DC) Additional Instructions: -Follow up [facility] 12/17/17 Dr Susana Lara 9:20 AM -Follow up GI Dr Jones 3-4 weeks. -Pantoprazole 40 mg PO daily -Ferrous Sulfate 325 mg 1 tab PO BID -No Alcohol, no NSAID, Aspirin, no smoking.
[2017-12-14 12:17] VITALS: O2SAT 98
== END 2017-12-10 12:25 | disposition home or self-care (01) | DRG 378 ==
LOC: H.ER 16:41 → H.ERHOLD 18:59 → H.TEL 22:25 → H.MEDSURG1 12-09 23:03
PROVIDERS: ADMIT Family Medicine Geriatric Medicine; ATTEND Family Medicine Geriatric Medicine
PROC: 0W3P8ZZ Control Bleeding in Gastrointestinal Tract, Via Natural or Artificial Opening Endoscopic (ICD-10-PCS; 2017-12-09)
PROC: 0DB68ZX Excision of Stomach, Via Natural or Artificial Opening Endoscopic, Diagnostic (ICD-10-PCS; 2017-12-09)
PROC: 3E0G8GC Introduction of Other Therapeutic Substance into Upper GI, Via Natural or Artificial Opening Endoscopic (ICD-10-PCS; 2017-12-09)
PROC: 30233N1 Transfusion of Nonautologous Red Blood Cells into Peripheral Vein, Percutaneous Approach (ICD-10-PCS; 2017-12-09)
PROC: 3E0234Z Introduction of Serum, Toxoid and Vaccine into Muscle, Percutaneous Approach (ICD-10-PCS; 2017-12-09)
PROC: 0DB98ZX Excision of Duodenum, Via Natural or Artificial Opening Endoscopic, Diagnostic (ICD-10-PCS; principal; 2017-12-09 08:00)
PROC: 0DJD8ZZ Inspection of Lower Intestinal Tract, Via Natural or Artificial Opening Endoscopic (ICD-10-PCS; 2017-12-10)
DX: K26.4 Chronic or unspecified duodenal ulcer with hemorrhage (principal); D62 Acute posthemorrhagic anemia; F12.90 Cannabis use, unspecified, uncomplicated; K29.70 Gastritis, unspecified, without bleeding; K29.80 Duodenitis without bleeding; K64.8 Other hemorrhoids; F14.90 Cocaine use, unspecified, uncomplicated; F17.210 Nicotine dependence, cigarettes, uncomplicated; Z23 Encounter for immunization